=== PATIENT | male | born 1965 | race Caucasian/White ===

== ENCOUNTER 2020-04-22 10:29 | Inpatient (IN) | payer OTHER, SELFPAY ==
[~2020-04-22] VITALS: Ht 175.3 cm; Wt 51.0 kg
[2020-04-22 10:47] VITALS: Ht 175.3 cm; Wt 51.0 kg
[2020-04-22 11:57] LABS: ALKALINE PHOSPHATASE 96 U/L (46-116); ALT/SGPT 34 U/L (16-63); AST/SGOT 38 U/L (15-37); BILIRUBIN TOTAL 0.4 mg/dL (0.20-1.00); CHLORIDE SERUM 94 mmol/L (98-107); CHOLESTEROL 158 mg/dL (<200); CREATININE SERUM 1.4 mg/dL (0.7-1.3); GFR1 56 mL/min; HDL CHOLESTEROL 35 mg/dL (40-60); LIPASE 116 IU/L (73-393); MAGNESIUM 2.6 mg/dL (1.8-2.4); POTASSIUM SERUM 4.7 mmol/L (3.5-5.1); SODIUM SERUM 130 mmol/L (136-145); T4(THYROXINE) 5.1 ug/dL (4.7-13.3); TOTAL PROTEIN, SERUM 7.6 g/dL (6.4-8.2)
[2020-04-22 12:07] LABS: ALBUMIN 2.9 g/dL (3.4-5.0)
[2020-04-22 12:08] LABS: C REACTIVE PROTEIN 16.1 mg/dL (<=0.9)
[2020-04-22 12:10] LABS: GLUCOSE SERUM 546 mg/dL (74-106)
[2020-04-22 12:10] LABS: UA SPECIFIC GRAVITY 1.025 (1.005-1.035); microscopic required? YES; urine erythrocyte 1+ (NEGATIVE)
[2020-04-22 12:42] LABS: AMPHETAMINE QUAL UR NONE DETECTED (See below)
[2020-04-22 12:44] LABS: BASOPHIL % 0.9 % (0-2); PLATELET COUNT 200 x10^3mcL (130-400); RED CELL DISTRIBUTION WIDTH 12.8 % (11.5-14.5)
[2020-04-22] MEDS ORDERED: WELCHOL625 MG PO (13:45)
[2020-04-22] MEDS ORDERED: PRECOSE50 MG PO (13:46)
[2020-04-22] MEDS ORDERED: JANUVIA100 M1 PO (13:46)
[2020-04-22] MEDS ORDERED: AMARYL4 MG PO (13:46)
[2020-04-22] MEDS ORDERED: ASPIR 8181 MG PO (13:46)
[2020-04-22] MEDS ORDERED: FORTAMET1000 MG PO (13:47)
[2020-04-22] MEDS ORDERED: ZESTRIL2.5 MG PO (13:47)
[2020-04-22 16:48] VITALS: BP 107/70
[2020-04-22 19:31] LABS: CALCIUM 8.6 mg/dL (8.5-10.1); CHLORIDE SERUM 107 mmol/L (98-107); CREATININE SERUM 1.1 mg/dL (0.7-1.3); GFR1 > 60 mL/min; GLUCOSE SERUM 269 mg/dL (74-106); MAGNESIUM 2.3 mg/dL (1.8-2.4); PHOSPHOROUS 1.4 mg/dL (2.5-4.9); SODIUM SERUM 139 mmol/L (136-145)
[2020-04-22 19:55] VITALS: BP 127/66
[2020-04-22 20:19] LABS: CARBON DIOXIDE 9.8 mmol/L (21-32)
[2020-04-22 23:05] LABS: CALCIUM 8.5 mg/dL (8.5-10.1); CARBON DIOXIDE 11.2 mmol/L (21-32); CHLORIDE SERUM 109 mmol/L (98-107); CREATININE SERUM 1.1 mg/dL (0.7-1.3); GFR1 > 60 mL/min; GLUCOSE SERUM 211 mg/dL (74-106); MAGNESIUM 2.2 mg/dL (1.8-2.4); SODIUM SERUM 144 mmol/L (136-145)
[2020-04-22 23:12] LABS: POTASSIUM SERUM 2.8 mmol/L (3.5-5.1)
[2020-04-22 23:21] VITALS: BP 115/91
[2020-04-23 03:00] VITALS: BP 130/81
[2020-04-23 03:09] LABS: CALCIUM 8.4 mg/dL (8.5-10.1); CARBON DIOXIDE 13.6 mmol/L (21-32); CHLORIDE SERUM 110 mmol/L (98-107); CREATININE SERUM 1.1 mg/dL (0.7-1.3); GFR1 > 60 mL/min; GLUCOSE SERUM 157 mg/dL (74-106); MAGNESIUM 2.3 mg/dL (1.8-2.4); SODIUM SERUM 145 mmol/L (136-145)
[2020-04-23 04:00] LABS: PHOSPHOROUS 0.6 mg/dL (2.5-4.9); POTASSIUM SERUM 2.6 mmol/L (3.5-5.1)
[2020-04-23 07:40] LABS: PLATELET COUNT 202 x10^3mcL (130-400); RED CELL DISTRIBUTION WIDTH 13.1 % (11.5-14.5)
[2020-04-23 07:46] VITALS: BP 96/59
[2020-04-23 07:52] LABS: CALCIUM 8.3 mg/dL (8.5-10.1); CARBON DIOXIDE 13.3 mmol/L (21-32); CHLORIDE SERUM 113 mmol/L (98-107); GFR1 > 60 mL/min; GLUCOSE SERUM 158 mg/dL (74-106); MAGNESIUM 2.2 mg/dL (1.8-2.4); SODIUM SERUM 145 mmol/L (136-145)
[2020-04-23 08:07] LABS: POTASSIUM SERUM 2.6 mmol/L (3.5-5.1)
[2020-04-23 08:09] LABS: PHOSPHOROUS 0.6 mg/dL (2.5-4.9)
[2020-04-23 10:31] LABS: BAND NEUTROPHIL 33 % (0-10); BASOPHIL 0 % (0-2); MONOCYTE 1 % (0-7); SEGMENTED NEUTROPHILS 62 % (37-75); rbc morphology (normal/abnorm) NORMAL (NORMAL)
[2020-04-23 10:32] LABS: PLATELET MORPHOLOGY PLATELETS NORMAL
[2020-04-23 11:07] LABS: CALCIUM 8.5 mg/dL (8.5-10.1); CARBON DIOXIDE 13.4 mmol/L (21-32); CHLORIDE SERUM 113 mmol/L (98-107); CREATININE SERUM 0.9 mg/dL (0.7-1.3); GFR1 > 60 mL/min; GLUCOSE SERUM 180 mg/dL (74-106); MAGNESIUM 2.3 mg/dL (1.8-2.4); POTASSIUM SERUM 3.2 mmol/L (3.5-5.1); SODIUM SERUM 144 mmol/L (136-145)
[2020-04-23 11:09] LABS: PHOSPHOROUS 0.6 mg/dL (2.5-4.9)
[2020-04-23 12:00] VITALS: BP 138/77
[2020-04-23 16:00] VITALS: BP 138/77
[2020-04-23 16:10] LABS: CALCIUM 8.2 mg/dL (8.5-10.1); CHLORIDE SERUM 112 mmol/L (98-107); CREATININE SERUM 0.8 mg/dL (0.7-1.3); GFR1 > 60 mL/min; GLUCOSE SERUM 210 mg/dL (74-106); MAGNESIUM 2.1 mg/dL (1.8-2.4); SODIUM SERUM 145 mmol/L (136-145)
[2020-04-23 16:31] LABS: PHOSPHOROUS 0.4 mg/dL (2.5-4.9); POTASSIUM SERUM 2.6 mmol/L (3.5-5.1)
[2020-04-23 19:30] VITALS: BP 155/78
[2020-04-23 19:40] LABS: CALCIUM 8.6 mg/dL (8.5-10.1); CARBON DIOXIDE 17.5 mmol/L (21-32); CHLORIDE SERUM 111 mmol/L (98-107); GFR1 > 60 mL/min; GLUCOSE SERUM 111 mg/dL (74-106); MAGNESIUM 2.1 mg/dL (1.8-2.4); SODIUM SERUM 145 mmol/L (136-145)
[2020-04-23 19:55] LABS: PHOSPHOROUS 0.6 mg/dL (2.5-4.9); POTASSIUM SERUM 2.9 mmol/L (3.5-5.1)
[2020-04-23 23:00] VITALS: BP 143/73
[2020-04-24 00:52] LABS: CALCIUM 8.2 mg/dL (8.5-10.1); CHLORIDE SERUM 111 mmol/L (98-107); CREATININE SERUM 0.8 mg/dL (0.7-1.3); GFR1 > 60 mL/min; GLUCOSE SERUM 117 mg/dL (74-106); SODIUM SERUM 145 mmol/L (136-145)
[2020-04-24 00:54] LABS: PHOSPHOROUS 0.6 mg/dL (2.5-4.9); POTASSIUM SERUM 2.7 mmol/L (3.5-5.1)
[2020-04-24 03:25] VITALS: BP 116/72
[2020-04-24 05:38] LABS: PLATELET COUNT 209 x10^3mcL (130-400); RED CELL DISTRIBUTION WIDTH 12.9 % (11.5-14.5)
[2020-04-24 06:13] LABS: BAND NEUTROPHIL 10 % (0-10); MONOCYTE 2 % (0-7); PLATELET MORPHOLOGY PLATELETS NORMAL; SEGMENTED NEUTROPHILS 81 % (37-75)
[2020-04-24 06:14] LABS: rbc morphology (normal/abnorm) NORMAL (NORMAL)
[2020-04-24 07:09] LABS: CHLORIDE SERUM 108 mmol/L (98-107); CREATININE SERUM 0.9 mg/dL (0.7-1.3); GFR1 > 60 mL/min; GLUCOSE SERUM 142 mg/dL (74-106); MAGNESIUM 1.9 mg/dL (1.8-2.4); SODIUM SERUM 142 mmol/L (136-145)
[2020-04-24 07:11] LABS: PHOSPHOROUS 0.6 mg/dL (2.5-4.9); POTASSIUM SERUM 2.8 mmol/L (3.5-5.1)
[2020-04-24 08:00] VITALS: BP 92/58
[2020-04-24 10:02] LABS: CALCIUM 7.8 mg/dL (8.5-10.1); CARBON DIOXIDE 25.8 mmol/L (21-32); CHLORIDE SERUM 105 mmol/L (98-107); CREATININE SERUM 0.7 mg/dL (0.7-1.3); GFR1 > 60 mL/min; GLUCOSE SERUM 112 mg/dL (74-106); MAGNESIUM 1.7 mg/dL (1.8-2.4); SODIUM SERUM 140 mmol/L (136-145)
[2020-04-24 10:14] LABS: PHOSPHOROUS 0.6 mg/dL (2.5-4.9); POTASSIUM SERUM 2.2 mmol/L (3.5-5.1)
[2020-04-24 12:00] VITALS: BP 134/74
[2020-04-24 14:36] LABS: CARBON DIOXIDE 22.4 mmol/L (21-32); CHLORIDE SERUM 100 mmol/L (98-107); CREATININE SERUM 0.9 mg/dL (0.7-1.3); GFR1 > 60 mL/min; MAGNESIUM 1.2 mg/dL (1.8-2.4); PHOSPHOROUS 5.6 mg/dL (2.5-4.9); POTASSIUM SERUM 4.1 mmol/L (3.5-5.1); SODIUM SERUM 133 mmol/L (136-145)
[2020-04-24 15:16] LABS: CALCIUM 5.8 mg/dL (8.5-10.1); GLUCOSE SERUM 671 mg/dL (74-106)
[2020-04-24 16:00] VITALS: BP 122/74
[2020-04-24 16:03] LABS: CALCIUM 7.5 mg/dL (8.5-10.1); CARBON DIOXIDE 23.8 mmol/L (21-32); CHLORIDE SERUM 102 mmol/L (98-107); CREATININE SERUM 0.7 mg/dL (0.7-1.3); GFR1 > 60 mL/min; GLUCOSE SERUM 124 mg/dL (74-106); SODIUM SERUM 138 mmol/L (136-145)
[2020-04-24 16:22] LABS: POTASSIUM SERUM 2.6 mmol/L (3.5-5.1)
[2020-04-24 17:09] LABS: MAGNESIUM 1.6 mg/dL (1.8-2.4); PHOSPHOROUS 1.3 mg/dL (2.5-4.9)
[2020-04-24 19:25] VITALS: BP 136/68
[2020-04-24 23:14] VITALS: BP 87/57
[2020-04-25] VITALS (7 sets, daily range): BP systolic 128–152; BP diastolic 78–90
[2020-04-25 06:13] LABS: CALCIUM 7.6 mg/dL (8.5-10.1); CARBON DIOXIDE 20.6 mmol/L (21-32); CHLORIDE SERUM 104 mmol/L (98-107); CREATININE SERUM 0.8 mg/dL (0.7-1.3); GFR1 > 60 mL/min; GLUCOSE SERUM 239 mg/dL (74-106); MAGNESIUM 2.1 mg/dL (1.8-2.4); PHOSPHOROUS 1.9 mg/dL (2.5-4.9); SODIUM SERUM 142 mmol/L (136-145)
[2020-04-25 06:14] LABS: POTASSIUM SERUM 2.8 mmol/L (3.5-5.1)
[2020-04-25 06:18] LABS: PLATELET COUNT 188 x10^3mcL (130-400); RED CELL DISTRIBUTION WIDTH 13.1 % (11.5-14.5)
[2020-04-25 06:23] LABS: BASOPHIL % 0 % (0-2)
[2020-04-25 16:00] LABS: ALT/SGPT 30 U/L (16-63); AST/SGOT 38 U/L (15-37)
[2020-04-25 16:08] LABS: CALCIUM 8.2 mg/dL (8.5-10.1); CARBON DIOXIDE 25.4 mmol/L (21-32); CHLORIDE SERUM 105 mmol/L (98-107); CREATININE SERUM 0.8 mg/dL (0.7-1.3); GFR1 > 60 mL/min; GLUCOSE SERUM 168 mg/dL (74-106); MAGNESIUM 2.3 mg/dL (1.8-2.4); PHOSPHOROUS 1.2 mg/dL (2.5-4.9); SODIUM SERUM 143 mmol/L (136-145)
[2020-04-25 16:11] LABS: POTASSIUM SERUM 2.7 mmol/L (3.5-5.1)
[2020-04-25 16:56] LABS: CALCIUM 8.1 mg/dL (8.5-10.1); CARBON DIOXIDE 27.7 mmol/L (21-32); CHLORIDE SERUM 105 mmol/L (98-107); CREATININE SERUM 0.8 mg/dL (0.7-1.3); GFR1 > 60 mL/min; GLUCOSE SERUM 156 mg/dL (74-106); MAGNESIUM 2.2 mg/dL (1.8-2.4); PHOSPHOROUS 1.1 mg/dL (2.5-4.9); SODIUM SERUM 143 mmol/L (136-145)
[2020-04-25 17:28] LABS: POTASSIUM SERUM 2.8 mmol/L (3.5-5.1)
[2020-04-25 20:37] LABS: CARBON DIOXIDE 27.6 mmol/L (21-32); CHLORIDE SERUM 105 mmol/L (98-107); CREATININE SERUM 0.6 mg/dL (0.7-1.3); GFR1 > 60 mL/min; GLUCOSE SERUM 153 mg/dL (74-106); MAGNESIUM 2.2 mg/dL (1.8-2.4); PHOSPHOROUS 1.3 mg/dL (2.5-4.9); SODIUM SERUM 142 mmol/L (136-145)
[2020-04-25 20:41] LABS: POTASSIUM SERUM 2.9 mmol/L (3.5-5.1)
[2020-04-26 04:27] VITALS: BP 143/81
[2020-04-26 07:39] LABS: CALCIUM 6.9 mg/dL (8.5-10.1); CARBON DIOXIDE 29.2 mmol/L (21-32); CHLORIDE SERUM 108 mmol/L (98-107); CREATININE SERUM 0.6 mg/dL (0.7-1.3); GFR1 > 60 mL/min; GLUCOSE SERUM 399 mg/dL (74-106); PHOSPHOROUS 1.5 mg/dL (2.5-4.9); SODIUM SERUM 144 mmol/L (136-145)
[2020-04-26 07:45] LABS: POTASSIUM SERUM 2.8 mmol/L (3.5-5.1)
[2020-04-26 08:30] VITALS: BP 130/73
[2020-04-26 10:38] LABS: ALKALINE PHOSPHATASE 126 U/L (46-116); ALT/SGPT 31 U/L (16-63); AST/SGOT 43 U/L (15-37); BILIRUBIN TOTAL 0.5 mg/dL (0.20-1.00); CALCIUM 7.9 mg/dL (8.5-10.1); CARBON DIOXIDE 27.5 mmol/L (21-32); CHLORIDE SERUM 106 mmol/L (98-107); CREATININE SERUM 0.8 mg/dL (0.7-1.3); GFR1 > 60 mL/min; GLUCOSE SERUM 226 mg/dL (74-106); SODIUM SERUM 143 mmol/L (136-145); TOTAL PROTEIN, SERUM 6.2 g/dL (6.4-8.2)
[2020-04-26 10:57] LABS: ALBUMIN 2.2 g/dL (3.4-5.0); POTASSIUM SERUM 2.7 mmol/L (3.5-5.1)
[2020-04-26 12:30] VITALS: BP 134/86
[2020-04-26 17:14] VITALS: BP 135/77
[2020-04-26 22:01] VITALS: BP 148/81
[2020-04-27 05:51] VITALS: BP 132/80
[2020-04-27 07:12] LABS: CALCIUM 7.8 mg/dL (8.5-10.1); CHLORIDE SERUM 104 mmol/L (98-107); CREATININE SERUM 0.8 mg/dL (0.7-1.3); GFR1 > 60 mL/min; GLUCOSE SERUM 228 mg/dL (74-106); SODIUM SERUM 145 mmol/L (136-145)
[2020-04-27 07:15] LABS: POTASSIUM SERUM 2.8 mmol/L (3.5-5.1)
[2020-04-27 07:21] LABS: BILIRUBIN TOTAL 0.72 mg/dL (0.20-1.00)
[2020-04-27 07:32] LABS: PLATELET COUNT 363 x10^3mcL (130-400); RED CELL DISTRIBUTION WIDTH 13.3 % (11.5-14.5)
[2020-04-27 07:39] LABS: BASOPHIL % 0 % (0-2)
[2020-04-27 09:14] VITALS: BP 112/60
[2020-04-27 13:25] VITALS: BP 131/74
[2020-04-27 18:24] VITALS: BP 136/81
[2020-04-27 20:00] VITALS: BP 126/72
[2020-04-28 05:28] VITALS: BP 141/80
[2020-04-28 06:33] LABS: RED CELL DISTRIBUTION WIDTH 13.4 % (11.5-14.5)
[2020-04-28 06:45] LABS: ALKALINE PHOSPHATASE 113 U/L (46-116); ALT/SGPT 29 U/L (16-63); AST/SGOT 18 U/L (15-37); BASOPHIL % 0 % (0-2); BILIRUBIN TOTAL 0.68 mg/dL (0.20-1.00); CALCIUM 8.5 mg/dL (8.5-10.1); CARBON DIOXIDE 17.4 mmol/L (21-32); CHLORIDE SERUM 109 mmol/L (98-107); CREATININE SERUM 0.8 mg/dL (0.7-1.3); GFR1 > 60 mL/min; GLUCOSE SERUM 272 mg/dL (74-106); PLATELET COUNT 425 x10^3mcL (130-400); POTASSIUM SERUM 3.5 mmol/L (3.5-5.1); SODIUM SERUM 148 mmol/L (136-145)
[2020-04-28 08:25] VITALS: BP 148/81
[2020-04-28 13:11] VITALS: BP 124/78
[2020-04-28 21:05] VITALS: BP 106/69
[2020-04-29 06:38] VITALS: BP 126/75
[2020-04-29 07:20] LABS: RED CELL DISTRIBUTION WIDTH 13.6 % (11.5-14.5)
[2020-04-29 07:38] LABS: ALKALINE PHOSPHATASE 137 U/L (46-116); ALT/SGPT 24 U/L (16-63); AST/SGOT 11 U/L (15-37); BILIRUBIN TOTAL 0.61 mg/dL (0.20-1.00); CALCIUM 8.2 mg/dL (8.5-10.1); CARBON DIOXIDE 21.2 mmol/L (21-32); CHLORIDE SERUM 116 mmol/L (98-107); CREATININE SERUM 0.9 mg/dL (0.7-1.3); GFR1 > 60 mL/min; GLUCOSE SERUM 337 mg/dL (74-106); SODIUM SERUM 156 mmol/L (136-145)
[2020-04-29 07:58] LABS: BASOPHIL % 0 % (0-2); PLATELET COUNT 424 x10^3mcL (130-400)
[2020-04-29 17:14] VITALS: BP 126/76
[2020-04-29 21:00] VITALS: BP 135/79
[2020-04-30 06:24] VITALS: BP 130/82
[2020-04-30 07:40] LABS: RED CELL DISTRIBUTION WIDTH 13.8 % (11.5-14.5)
[2020-04-30 08:01] LABS: ALKALINE PHOSPHATASE 103 U/L (46-116); ALT/SGPT 23 U/L (16-63); AST/SGOT 15 U/L (15-37); BASOPHIL % 0 % (0-2); BILIRUBIN TOTAL 0.6 mg/dL (0.20-1.00); CALCIUM 7.8 mg/dL (8.5-10.1); CARBON DIOXIDE 25.1 mmol/L (21-32); CHLORIDE SERUM 120 mmol/L (98-107); CREATININE SERUM 0.8 mg/dL (0.7-1.3); GFR1 > 60 mL/min; GLUCOSE SERUM 307 mg/dL (74-106); PLATELET COUNT 402 x10^3mcL (130-400)
[2020-04-30 08:13] LABS: SODIUM SERUM 160 mmol/L (136-145)
[2020-04-30 08:14] LABS: POTASSIUM SERUM 2.6 mmol/L (3.5-5.1)
[2020-04-30 09:08] VITALS: BP 129/84
[2020-04-30 12:57] VITALS: BP 111/78
[2020-04-30 18:02] VITALS: BP 136/78
[2020-04-30 19:40] VITALS: BP 133/80
[2020-05-01 05:08] VITALS: BP 113/72
[2020-05-01 07:36] LABS: PLATELET COUNT 309 x10^3mcL (130-400); RED CELL DISTRIBUTION WIDTH 13.8 % (11.5-14.5)
[2020-05-01 07:40] LABS: ALKALINE PHOSPHATASE 118 U/L (46-116); ALT/SGPT 23 U/L (16-63); AST/SGOT 19 U/L (15-37); BILIRUBIN TOTAL 0.62 mg/dL (0.20-1.00); CALCIUM 7.6 mg/dL (8.5-10.1); CARBON DIOXIDE 30.2 mmol/L (21-32); CHLORIDE SERUM 112 mmol/L (98-107); CREATININE SERUM 0.8 mg/dL (0.7-1.3); GFR1 > 60 mL/min; GLUCOSE SERUM 222 mg/dL (74-106); POTASSIUM SERUM 3.3 mmol/L (3.5-5.1); SODIUM SERUM 150 mmol/L (136-145)
[2020-05-01 09:17] VITALS: BP 116/65
[2020-05-01 12:22] VITALS: BP 84/51
[2020-05-01 12:51] LABS: BAND NEUTROPHIL 2 % (0-10); SEGMENTED NEUTROPHILS 87 % (37-75)
[2020-05-01 12:52] LABS: MONOCYTE 3 % (0-7); rbc morphology (normal/abnorm) NORMAL (NORMAL)
[2020-05-01 15:25] VITALS: BP 84/51
[2020-05-01 17:00] VITALS: BP 99/61
[2020-05-01 21:05] VITALS: BP 97/71
[2020-05-02 05:32] VITALS: BP 106/71
[2020-05-02 06:33] LABS: PLATELET COUNT 202 x10^3mcL (130-400); RED CELL DISTRIBUTION WIDTH 13.3 % (11.5-14.5)
[2020-05-02 06:43] LABS: CARBON DIOXIDE 26.5 mmol/L (21-32); CHLORIDE SERUM 110 mmol/L (98-107); CREATININE SERUM 0.7 mg/dL (0.7-1.3); GFR1 > 60 mL/min; GLUCOSE SERUM 270 mg/dL (74-106); POTASSIUM SERUM 3.9 mmol/L (3.5-5.1); SODIUM SERUM 148 mmol/L (136-145)
[2020-05-02 07:32] VITALS: BP 98/61
[2020-05-02 11:56] LABS: BAND NEUTROPHIL 5 % (0-10); MONOCYTE 2 % (0-7); SEGMENTED NEUTROPHILS 87 % (37-75)
[2020-05-02 11:57] LABS: BASOPHIL 1 % (0-2); rbc morphology (normal/abnorm) NORMAL (NORMAL)
[2020-05-02 11:58] LABS: PLATELET MORPHOLOGY PLATELETS NORMAL
[2020-05-02 12:44] VITALS: BP 103/64
[2020-05-02 17:10] VITALS: BP 117/71
[2020-05-03 05:44] VITALS: BP 121/75
[2020-05-03 06:48] LABS: CALCIUM 7.8 mg/dL (8.5-10.1); CARBON DIOXIDE 24.2 mmol/L (21-32); CHLORIDE SERUM 108 mmol/L (98-107); CREATININE SERUM 0.6 mg/dL (0.7-1.3); GFR1 > 60 mL/min; GLUCOSE SERUM 279 mg/dL (74-106); POTASSIUM SERUM 3.2 mmol/L (3.5-5.1); SODIUM SERUM 145 mmol/L (136-145)
[2020-05-03 07:04] LABS: PLATELET COUNT 188 x10^3mcL (130-400); RED CELL DISTRIBUTION WIDTH 13.2 % (11.5-14.5)
[2020-05-03 07:07] LABS: BASOPHIL % 0 % (0-2)
[2020-05-03 10:19] VITALS: BP 123/82
[2020-05-03 20:20] VITALS: BP 100/57
[2020-05-04 06:53] LABS: CALCIUM 7.2 mg/dL (8.5-10.1); CARBON DIOXIDE 23.9 mmol/L (21-32); CHLORIDE SERUM 107 mmol/L (98-107); CREATININE SERUM 0.7 mg/dL (0.7-1.3); GFR1 > 60 mL/min; GLUCOSE SERUM 293 mg/dL (74-106); POTASSIUM SERUM 3.2 mmol/L (3.5-5.1); SODIUM SERUM 143 mmol/L (136-145)
[2020-05-04 07:16] LABS: PLATELET COUNT 136 x10^3mcL (130-400); RED CELL DISTRIBUTION WIDTH 13.6 % (11.5-14.5)
[2020-05-04 07:30] LABS: BASOPHIL % 0 % (0-2)
[2020-05-04 08:52] VITALS: BP 96/60
[2020-05-04 12:50] VITALS: BP 106/64
[2020-05-04 17:52] VITALS: BP 138/73
[2020-05-04 21:09] VITALS: BP 94/55
[2020-05-05 05:59] VITALS: BP 103/62
[2020-05-05 08:18] LABS: CALCIUM 7.7 mg/dL (8.5-10.1); CARBON DIOXIDE 28.8 mmol/L (21-32); CHLORIDE SERUM 108 mmol/L (98-107); CREATININE SERUM 0.7 mg/dL (0.7-1.3); GFR1 > 60 mL/min; GLUCOSE SERUM 236 mg/dL (74-106); POTASSIUM SERUM 3.8 mmol/L (3.5-5.1); SODIUM SERUM 142 mmol/L (136-145)
[2020-05-05 08:25] LABS: BASOPHIL % 0 % (0-2); PLATELET COUNT 135 x10^3mcL (130-400); RED CELL DISTRIBUTION WIDTH 13.7 % (11.5-14.5)
[2020-05-05 08:48] VITALS: BP 99/60
[2020-05-05 11:57] VITALS: BP 108/63
[2020-05-05 13:05] VITALS: BP 108/63
== END 2020-05-05 16:08 | disposition other institution (70) | DRG 177 ==
LOC: ED 10:29 → IC 13:14 → DU 13:14 → IC 16:42 → DU 04-26 03:21
PROVIDERS: Emergency Medicine; Internal Medicine Infectious Disease; ADMIT Internal Medicine; ATTEND Internal Medicine
PROC: 30233K1 Transfusion of Nonautologous Frozen Plasma into Peripheral Vein, Percutaneous Approach (ICD-10-PCS; principal; 2020-04-26)
DX: U07.1 COVID-19 (principal); E11.10 Type 2 diabetes mellitus with ketoacidosis without coma; G93.41 Metabolic encephalopathy; J12.89 Other viral pneumonia; J96.91 Respiratory failure, unspecified with hypoxia; N39.0 Urinary tract infection, site not specified; E46 Unspecified protein-calorie malnutrition; Z68.1 Body mass index [BMI] 19.9 or less, adult; E87.0 Hyperosmolality and hypernatremia; N17.9 Acute kidney failure, unspecified; E11.40 Type 2 diabetes mellitus with diabetic neuropathy, unspecified; E78.5 Hyperlipidemia, unspecified; N18.3 Chronic kidney disease, stage 3 (moderate); I12.9 Hypertensive chronic kidney disease with stage 1 through stage 4 chronic kidney disease, or unspecified chronic kidney disease; E11.22 Type 2 diabetes mellitus with diabetic chronic kidney disease; Z66 Do not resuscitate; E86.0 Dehydration; E87.6 Hypokalemia; Z79.899 Other long term (current) drug therapy
CPT/HCPCS: 36600; 82962; 83880; 85378; 87804; 92526-GN; 92610-GN; 97116-GP; 97530-GP; G0378; G0480; J0456; J0696; J1650; J1815; J2060; J2270; J2543; J2920; J3475; J3480; J3490; J3535; J7030; J7040; J7042; J7050; Q0092; U0003-CS